=== PATIENT | female | born 2005 | race Two or more races ===

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

== ENCOUNTER 2024-01-23 11:47 | Emergency (ER) | payer MEDICAID ==
[~2024-01-23] VITALS: Ht 170.2 cm; Wt 93.4 kg
[~2024-01-23 11:47] MED LIST changes: -CEFAZOLIN SODIUM 1 GM VIAL IVPB PRN
[2024-01-23 12:57] LABS: BASOPHILS # (AUTO) 0.04 K/uL (0.00-0.20); BASOPHILS % (AUTO) 0.4 % (0.0-5.0); EOSINOPHILS # (AUTO) 0.08 K/uL (0.00-0.70); EOSINOPHILS % (AUTO) 0.8 % (0.0-8.0); HEMATOCRIT 40.7 % (36-48); IMMATURE GRANULOCYTE ABSOLUTE 0.03 K/uL (0-1); LYMPHOCYTES # (AUTO) 2.2 K/uL (1.0-4.8); LYMPHOCYTES % (AUTO) 23.5 % (21.0-51.0); MEAN CORPUSCULAR HEMOGLOBIN 24.9 pg (27.0-33.0); MEAN CORPUSCULAR HGB CONC 31.4 g/dL (32.0-36.0); MONOCYTES # (AUTO) 0.5 K/uL (0.1-1.0); MONOCYTES % (AUTO) 5.6 % (3.0-13.0); NEUTROPHILS # (AUTO) 6.6 K/uL (1.8-7.7); NEUTROPHILS % (AUTO) 69.4 % (40.0-77.0); PLATELET COUNT (AUTO) 375 K/uL (130-400); RED BLOOD CELL COUNT(AUTO) 5.15 MIL/uL (4.00-5.50); RED CELL DISTRIBUTION WIDTH 15.3 % (11.0-15.5); WHITE BLOOD COUNT (AUTO) 9.5 K/uL (4.8-10.8)
[2024-01-23 13:16] LABS: ALBUMIN 3.5 g/dL (3.5-5.0); BILIRUBIN,TOTAL 0.4 mg/dL (0.2-1.0); CREATININE 0.6 mg/dL (0.5-1.0); POTASSIUM 4.2 mmol/L (3.5-5.1); TOTAL PROTEIN, SERUM 7.6 g/dL (6.0-8.3)
[2024-01-23 13:22] LABS: B-TYPE NATRIURETIC PEPTIDE 14 pg/mL (0-100)
[2024-01-23] MEDS ORDERED: NAPR-1196 PO (14:47)
[2024-01-23 14:56] VITALS: BP 118/76; PULSE 66; RESP 19; O2SAT 99
== END 2024-01-23 16:10 | disposition home or self-care (01) ==
LOC: EDH 11:47
DX: R07.89 Other chest pain (principal); I10 Essential (primary) hypertension
CPT/HCPCS: 36415; 70450; 71046; 80053; 81025; 83880; 84484; 85025; 93005

== ENCOUNTER 2024-09-15 21:56 | Emergency (ER) | payer MEDICAID ==
[~2024-09-15] VITALS: Ht 167.6 cm; Wt 129.3 kg
[~2024-09-15 21:56] MED LIST changes: +NAPR-1196 PO
[2024-09-15] MEDS ORDERED: AMOX500T2 PO (22:27)
--- NOTE | 2024-09-15 22:28 | ERN ---
ED Note History of Present Illness Stated Complaint: C/O LEFT EAR PAIN Chief Complaint: Earache Time Seen by MD: 22:08 Time Seen by Midlevel: 22:08 Dictation: The patient is a 19-year-old female with history of prediabetes who presents to the emergency department with complaints of left ear pain onset yesterday. Patient denies any fevers, trauma, cough or recent upper respiratory infection Allergies: Coded Allergies: No Known Allergies (Unverified Allergy, Unknown, 12/28/22) Home Meds Active Scripts Naproxen (Naproxen) 250 Mg Tablet, 250 MG PO BID for 5 Days, #10 TAB Prov:YESENIA MUNSON MD 01/23/24 Reported Medications Ibuprofen (Ibuprofen) 600 Mg Tablet, 600 MG PO AD PRN for PAIN, TAB 01/23/23 Past Medical History Past Medical History: No Pertinent History Surgical History: Other LMP: Aug 12, 2024 RN Note Reviewed/Agreed w/PFSH: Yes Review of System Dictation Constitutional: Negative for fever,chills, and weight loss Eyes: Negative for injury, pain,redness, and discharge ENT: Negative for injury,pain or swelling positive for left ear pain Cardiovascular: Negative for chest pain, palpitations, and edema Respiratory: Negative for shortness of breath, cough, and wheezing, Abdomen/GI: Negative for abdominal pain, nausea, vomiting, diarrhea, and constipation Back: Negative for injury and pain : Negative for injury, bleeding and discharge MS/Extremity: Negative for injury and deformity Skin: Negative for rash, and discoloration Neuro: Negative for headache, weakness, numbness, tingling, and seizure Psych: Negative for suicide ideation, homicidal ideation, and hallucinations Initial Vital Sign VS Vital Signs Date Time Temp Pulse Resp B/P (MAP) Pulse Ox O2 Delivery O2 Flow Rate FiO2 09/15/24 21:58 99.3 78 20 179/105 98 Room Air Physical Exam Dictation Vital Signs reviewed General Appearance: Alert, oriented x 3, no acute distress, well developed, nou rished. Head and Face: non-traumatic. Eyes: PERRL, pink conjunctivas, eyelid no trauma, anterior chamber with arcus senilis. Ears: Pinnas intact and no signs of trauma or +erythema ear canals clear and left inner ear with creamy white drainage, Nose: No discharge, no bleeding. Oropharynx: Mouth normal, tongue pink. pharynx clear,no erythema, tonsils no exudates, no abscesses noted, mucous membrane moist Neck: Supple, non-tender, no thyromegaly, no masses, no JVD, no bruits Breast:Deferred Chest:No tenderness, no crepitus, no paradoxical movement, no retractions Lungs:Clear, well-ventilated, symmetric, no rales, no wheezing, no rhonchi, no stridor, good breath sounds bilaterally Heart: Regular rate, regular rhythm, no murmur, no gallops Vascular: no peripheral edema, Abdomen: Soft, positive bowel sounds, nondistended, no guarding, nontender, no rebound, no masses no hepatomegaly, no splenomegaly, no Gross's sign, no hernias. Rectal: Deferred Genital: Deferred Neurological: Normal speech, motor function intact, sensory function intact Musculoskeletal: Neck nontender, full range of motion, back nontender, full range of motion, Extremities: nontender, full range of motion Skin: Color pink, dry, no turgor, no rash, no lacerations, no abrasions, no c ontusions. Lymphatic: Deferred Results (Laboratory/Radiology) Labs Reviewed?: Yes ED Course ED Course Orders Procedure Category Date Status Time Acetaminophen 500mg PHA 09/15/24 In Process Tab (Tylenol 500mg T 22:30 Current Medications Medications (Trade) Dose Ordered Sig/Josemanuel Route PRN Reason Start Time Stop Time Status Last Admin Dose Admin Acetaminophen (TYLenol 500MG TAB) 1,000 mg ONCE ONCE PO 09/15/24 22:30 09/15/24 22:31 Vital Signs Date Time Temp Pulse Resp B/P (MAP) Pulse Ox O2 Delivery O2 Flow Rate FiO2 09/15/24 21:58 99.3 78 20 179/105 98 Room Air Medical Decision Making MDM The patient is a 19-year-old female with history of prediabetes who presents to the emergency department with complaints of left ear pain onset yesterday. Patient denies any fevers, trauma, cough or recent upper respiratory infection Patient is left ear canal with erythema, drainage. We will be treated for otitis media and instructed to follow up with PCP. Differential diagnosis: Otitis media, otitis externa, foreign body Need for hospitalization: Patient does not meet criteria for hospitalization. There are no social concerns with this patient. DX & DISP Disposition: Discharge Departure Impression: Primary Impression: Acute otitis media, left Condition: Stable Scripts Amoxicillin (Amoxicillin) 500 Mg Tablet 1 TAB PO TID for 10 Days, #30 TAB 0 Refills Prov: SOLORUSTY GRIDER 09/15/24 Additional Instructions: FOLLOW-UP WITH PRIMARY CARE PROVIDER IN 1 TO 2 DAYS. TAKE MEDICATIONS DIRECTED HERE IN THE EMERGENCY ROOM. OKAY TO CONTINUE HOME MEDICATIONS UNLESS OTHERWISE DISCUSSED DURING YOUR VISIT IN THE EMERGENCY ROOM TODAY. RETURN TO YOUR NEAREST EMERGENCY ROOM IF SYMPTOMS WORSEN OR IF THERE IS NO IMPROVEMENT. CALL 911 IF YOU NEED IMMEDIATE ASSISTANCE. TAKE TYLENOL OR MOTRIN [id number] NEEDED AND IF NO CONTRAINDICATIONS ARE PRESENT. INCREASE ORAL HYDRATION. A WOUND CULTURE OR URINE CULTURE WAS ORDERED HERE IN THE EMERGENCY ROOM DEPARTMENT PLEASE FOLLOW-UP WITH PRIMARY CARE PROVIDER AND ADVISE THEM TO GET REPEAT PORTS FROM OUR FACILITY. IF YOU HAD ANY YAO WRAP/SPLINTS THAT WERE APPLIED HERE, PLEASE DO NOT REMOVE THEM UNTIL YOU SEE YOUR PRIMARY CARE OR SPECIALTY. Referrals: JULIO LOPEZ MD (PCP) Time of Disposition: 22:26 I have reviewed the case, and I agree with, Diagnosis and Plan RUSTY BANDA Sep 15, 2024 22:28
[2024-09-15 22:35] VITALS: BP 155/68; PULSE 82; RESP 18; TEMP 98.8; O2SAT 96
[2024-09-15] MEDS: acetaMINOPHEN 500 MG TABLET PO ONE (22:40)
== END 2024-09-15 22:54 | disposition home or self-care (01) ==
LOC: EDH 21:56
DX: H66.92 Otitis media, unspecified, left ear (principal); Z79.899 Other long term (current) drug therapy; Z98.890 Other specified postprocedural states
CPT/HCPCS: 99283